=== PATIENT | female | born 1985 | race African-American/Black ===

== ENCOUNTER 2019-08-21 14:09 | Emergency (ER) | payer OTHER ==
[~2019-08-21] VITALS: Ht 162.6 cm; Wt 84.0 kg
[2019-08-21] MEDS ORDERED: IBUPROFEN 600MG TABLET PO STA (16:13)
[2019-08-21 16:55] LABS: BASOPHILS % 0.9 % (0.0-2.0); EOSINOPHILS % 3.1 % (0.0-5.0); HEMATOCRIT. 42.9 % (36.0-48.0); HEMOGLOBIN. 14.4 g/dL (12.0-16.0); MEAN CORPUSCULAR HEMOGLOBIN 30.7 pg (28.0-32.0); MEAN CORPUSCULAR VOLUME 91.5 fL (81.0-99.0); MEAN PLATELET VOLUME 7.3 fl (7.4-10.4); MONOCYTES % 6.7 % (2.0-8.0); NEUTROPHILS % 67.3 % (40.0-76.0); PLATELET 303 x1000/uL (130-400); RED BLOOD CELL COUNT 4.69 mill/uL (4.2-5.4); RED CELL DISTRIBUTION WIDTH 13.3 % (11.6-14.6)
[2019-08-21 16:59] LABS: INR 0.9; PROTHROMBIN TIME 9.8 sec (9.6-11.0)
[2019-08-21 17:01] LABS: CHLORIDE 105 mEq/L (98-107)
[2019-08-21 17:38] LABS: CLARITY URINE CLEAR (CLEAR); COLOR URINE YELLOW (YELLOW); KETONES URINE TRACE (NEGATIVE); LEUKOCYTE ESTERASE URINE TRACE (NEGATIVE); NITRITE URINE NEGATIVE (NEGATIVE); OCCULT BLOOD URINE TRACE (NEGATIVE); PH URINE 5.5 (4.5-8.0); PROTEIN URINE NEGATIVE (NEGATIVE); SPECIFIC GRAVITY URINE 1.027 (1.005-1.030); UROBILINOGEN URINE 0.2 E.U./dL (0.2-1.0)
[2019-08-21 18:53] VITALS: BP 107/75
== END 2019-08-21 19:00 | disposition home or self-care (01) ==
LOC: ER 14:09
DX: I82.812 Embolism and thrombosis of superficial veins of left lower extremity (principal); I82.432 Acute embolism and thrombosis of left popliteal vein
CPT/HCPCS: 36415; 71045; 81003; 81025; 83880; 84484; 93005; 93971; 99284